=== PATIENT | female | born 1955 | race African-American/Black ===

== ENCOUNTER → 2016-10-13 | Day surgery (SDC) | payer BC ==
[~2016-10-13] MED LIST: ALLEGRA-D1 TAB 60/1 PO; AMBIEN CR PO; BUPROPION HCL150 M2 PO; CELEBREX PO; CERTAGEN PO; CYMBALTA PO; CYMBALTA30 MG PO; DEXFOL PO; FLONASE 0.05% N16 G1; GLUCOPHAGE XR500 MG PO; HYDROCODON-ACE1 EAC2 PO; HYDROCODON-ACE1 EAC4 PO; JANUVIA PO; LISINOPRIL10 MG PO; METFORMIN PO; NEPHROCAPS1 CAP PO; NEURONTIN PO; NEXIUM PO; OXYCONTIN PO; PREMPRO 0.45/1.1 TAB PO; REGLAN10 MG PO; SINGULAIR PO; TOPAMAX200 MG PO; URIBEL CAPSULE1 EACH PO; VENTOLIN5 MG/ML IH; VICODIN 5/500 T1 TAB PO; VIIBRYD20 MG PO; XYZAL PO; ZESTORETIC PO; ZONEGRAN100 M1 PO; ZOVIRAX800 MG PO; [UNRECOGNIZED DRUG - OTHER]; [UNRECOGNIZED DRUG - OTHER]; [UNRECOGNIZED DRUG - OTHER] PO
--- NOTE | ~2016-10-13 | OR ---
Unit #: [id number] #: [id number] Patient: ESTEFANI ALLEN [id number] [address] [address] [id number] O MR#: [id number] NAME: ESTEFANI ALLEN ROOM: Date of Procedure: 10/13/2016 Admission Date: 10/13/2016 Surgeon: Bubba Mendieta M.D. : 1955 Attending Physician: Bubba Mendieta M.D. Primary Care Physician: Neri Bailey M.D. OPERATIVE REPORT JOB NOTE: CC: [facility] PREOPERATIVE DIAGNOSES Back pain, radiculopathy, degenerative lumbar disk disease. POSTOPERATIVE DIAGNOSES Back pain, radiculopathy, degenerative lumbar disk disease. PROCEDURE PERFORMED Lumbar epidural steroid injection with intravenous sedation and fluoroscopic guidance for needle localization. INDICATIONS FOR PROCEDURE The patient is a 61-year-old female with return of back and left greater than right lower extremity pain due to multilevel multifactorial degenerative disk and spine disease. She is not a surgical candidate. She has done well with p.r.n. single epidural steroid injections. Last injection was done in 12/2015. Prior to that, she had a single in 03/2015. Based on history, pathology, symptomatology, and treatment options, plan is to repeat an epidural steroid injection today. DESCRIPTION OF PROCEDURE The patient was placed in a seated position. Standard monitors were applied. 3 mg of Versed were given for sedation and anxiolysis, which were adequate. Vital signs remained stable. Sterile prep and drape then of lumbar area was performed. The skin then at the L4-L5 level was localized with 1% lidocaine. An 18-gauge [employer] needle was then advanced via loss of resistance technique and fluoroscopic guidance in toward the epidural space. After confirming proper positioning with fluoroscopy and radiographic contrast, 80 mg Depo-Medrol and 4 mL of 0.125% bupivacaine were deposited. The patient tolerated the procedure otherwise well and was discharged to the recovery room in stable condition. Dictated by... Bubba Mendieta M.D. LHP/modl TD: 10/13/2016 11:53 JOB #: [id number] Unit #: [id number] #: [id number] Patient: ESTEFANI ALLEN OPERATIVE REPORT Page 1 of 1 X Bubba Mendieta MD X PROCEDURE OPERATIVE NOTE
== END | disposition home or self-care (01) ==
LOC: CCSC 07:59
DX: M51.16 Intervertebral disc disorders with radiculopathy, lumbar region (principal); E11.9 Type 2 diabetes mellitus without complications; K21.9 Gastro-esophageal reflux disease without esophagitis; M19.90 Unspecified osteoarthritis, unspecified site; F32.9 Major depressive disorder, single episode, unspecified; F41.9 Anxiety disorder, unspecified
CPT/HCPCS: J1040; J2250

== ENCOUNTER → 2016-11-03 | Day surgery (SDC) | payer BC ==
--- NOTE | ~2016-11-03 | OR ---
Unit #: [id number] #: [id number] Patient: ESTEFANI ALLEN [id number] [address] [place], [place] [address] [id number] O MR#: [id number] NAME: ESTEFANI ALLEN ROOM: Date of Procedure: 11/03/2016 Admission Date: 11/03/2016 Surgeon: Bubba Mendieta M.D. : 1955 Attending Physician: Bubba Mendieta M.D. Primary Care Physician: Neri Bailey M.D. OPERATIVE REPORT JOB NOTE: CC: [facility] PREOPERATIVE DIAGNOSES 1. Back pain, radiculopathy, degenerative lumbar disk disease. 2. Neck pain, cervical radiculopathy, degenerative cervical disk disease. POSTOPERATIVE DIAGNOSES 1. Back pain, radiculopathy, degenerative lumbar disk disease. 2. Neck pain, cervical radiculopathy, degenerative cervical disk disease. PROCEDURES PERFORMED Cervical epidural steroid injection and lumbar epidural steroid injection with intravenous sedation. INDICATIONS FOR PROCEDURE The patient is a 61-year-old female with previously mentioned diagnosis. She had a return of pain in back and bilateral lower extremities. She has nonsurgical pathology. She was first treated with epidural steroids and did very well in 03/2015. She had repeat injection done about 3 weeks ago, did not help as much as usually does in her back. We are going to proceed with a second one today. Neck pain was also flared. Last injection was done a year ago. She did very well until just recently. Plan is to repeat a single injection at this point. DESCRIPTION OF PROCEDURE Procedure #1: The patient was placed in a seated position. Standard monitors were applied. 4 mg of Versed were given in divided doses for anxiolysis and sedation, which were adequate. Vital signs remained stable. Sterile prep and drape then of lumbar area was performed. The skin at the L4-L5 level was localized with 1% lidocaine. An 18-gauge [employer] needle was then advanced via loss of resistance technique and fluoroscopic guidance in toward the epidural space. After confirming proper positioning with fluoroscopy and radiographic contrast, 80 mg of Depo-Medrol and 4 mL of 0.125% bupivacaine were deposited. The patient tolerated this part of procedure well. Procedure #2: Cervical epidural steroid injection with fluoroscopic guidance. A separate kit was used to sterilely prep and drape the patient's cervical spine. The skin then at the C6 level was localized with 1% lidocaine. An 18-gauge [employer] needle was then advanced via hanging drop technique and fluoroscopic guidance in toward the epidural space. After confirming proper positioning with fluoroscopy and Unit #: [id number] #: [id number] Patient: ESTEFANI ALLEN radiographic contrast, 80 mg of Depo-Medrol and 2 mL of 0.125% bupivacaine were deposited. The patient tolerated the procedure otherwise well and was discharged to recovery room in stable condition. Dictated by... Charan Jose/eva TD: 11/03/2016 14:05 JOB #: [id number] OPERATIVE REPORT Page 1 of 1 X Bubba Mendieta MD X PROCEDURE OPERATIVE NOTE
== END | disposition home or self-care (01) ==
LOC: CCSC 10:01
DX: M51.16 Intervertebral disc disorders with radiculopathy, lumbar region (principal); M50.10 Cervical disc disorder with radiculopathy, unspecified cervical region; E11.9 Type 2 diabetes mellitus without complications; M19.90 Unspecified osteoarthritis, unspecified site; K21.9 Gastro-esophageal reflux disease without esophagitis; F41.9 Anxiety disorder, unspecified; F32.9 Major depressive disorder, single episode, unspecified; Z88.0 Allergy status to penicillin; Z79.899 Other long term (current) drug therapy
CPT/HCPCS: J1040; J2250